=== PATIENT | female | born 1955 | race Hispanic/Latino ===

== ENCOUNTER → 2018-03-19 | Day surgery (SDC) | payer MEDICARE ==
[~2018-03-19] MED LIST: ALENDRONATE SOD70 MG PO; AMLODIPINE BESY10 MG PO; ASA325 PO; CALTRATE 600600 MG PO; CELEBREX100 MG PO; FENOFIBRATE160 MG PO; FENTANYL CITRATE/PF 100MCG/2 ML INJ ONE; FERROUS SULFAT325 MG PO; GABAPENTIN300 MG PO; LEVEMIR100 UNIT/1 SC; LOFIBRA160 MG PO; LOSARTAN POTASS25 MG PO; METFORMIN HCL500 MG PO; MIDAZOLAM HCL 2 MG/2 ML VIAL ONE; NRC7.5T PO; OMEPRAZOLE40 MG PO; OR PHACO EYE KIT ONE; PRAVASTATIN SOD40 MG PO; TOUJEO SC; TYLENOL PM PO; VICTOZA 2-0.6 MG/0.1 SC; WOMEN'S DAILY1 EACH PO
[2018-03-19 12:55] VITALS: BP 119/55
[2018-03-19] MEDS: PREOP PHACO EYE KIT ONE (14:29)
--- OUTSIDE RECORDS SUMMARY | 2018-03-19 14:43 | XMS REPORT | Clinical Summary ---
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 Disp. Refills Start End Date Status Date liraglutide 0.6 mg/0.1 mL Inject subcutaneously. Active (18 mg/3 mL) PnIj fenofibrate Take 160 mg by mouth Active (TRIGLIDE,LOFIBRA) 160 MG daily. tablet amLODIPine (NORVASC) 10 Take 10 mg by mouth Active MG tablet daily. omeprazole (PRILOSEC) 20 Take 20 mg by mouth Active MG capsule daily. gabapentin (NEURONTIN) Take 300 mg by mouth 3 Active 300 MG capsule (three) times daily. pravastatin (PRAVACHOL) Take 10 mg by mouth Active 10 MG tablet daily. metFORMIN (GLUCOPHAGE) Take 1,000 mg by mouth 2 Active 1000 MG tablet (two) times daily with breakfast and dinner. Active Problems Not on file Social History Tobacco Use Types Packs/Day Years Used Date Current Every Day Smoker Smokeless Tobacco: Never Used Alcohol Use Drinks/Week oz/Week Comments No Sex Assigned at Date Recorded Not on file Last Filed Vital Signs Not on file Plan of Treatment Not on file Results Not on fileafter 03/18/2017
== END | disposition home or self-care (01) ==
LOC: OR 09:30
PROVIDERS: ATTEND Ophthalmology
DX: H25.12 Age-related nuclear cataract, left eye (principal); I10 Essential (primary) hypertension; E11.9 Type 2 diabetes mellitus without complications; Z79.4 Long term (current) use of insulin; Z79.84 Long term (current) use of oral hypoglycemic drugs; E78.5 Hyperlipidemia, unspecified; E55.9 Vitamin D deficiency, unspecified; E66.9 Obesity, unspecified
CPT/HCPCS: 36415; 82948; J2250; V2787

== ENCOUNTER → 2018-04-02 | Day surgery (SDC) | payer MEDICARE ==
[~2018-04-02] MED LIST changes: +PREOP PHACO EYE KIT ONE
--- OUTSIDE RECORDS SUMMARY | 2018-04-02 08:04 | XMS REPORT | Clinical Summary ---
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 Active fenofibrate Take 160 mg 0 (TRIGLIDE,LOFIBRA) 160 MG by mouth tablet daily. Active amLODIPine (NORVASC) 10 Take 10 mg by 0 MG tablet mouth daily. Active omeprazole (PRILOSEC) 20 Take 20 mg by 0 MG capsule mouth daily. Active gabapentin (NEURONTIN) Take 300 mg 0 300 MG capsule by mouth 3 (three) times daily. Active pravastatin (PRAVACHOL) Take 10 mg by 0 10 MG tablet mouth daily. Active metFORMIN (GLUCOPHAGE) Take 1,000 mg 0 1000 MG tablet by mouth 2 (two) times daily with breakfast and dinner. Active Problems Not on file Social History Date Tobacco Use Types Packs/Day Years Used Current Every Day Smoker Smokeless Tobacco: Never Used Alcohol Use Drinks/Week oz/Week Comments No Sex Assigned at Date Recorded Not on file Industry Job Start Date Occupation Not on file Not on file Not on file Travel End Travel History Travel Start No recent travel history available. Last Filed Vital Signs Not on file Plan of Treatment Not on file Results Not on fileafter 04/01/2017 Insurance Payer Benefit Subscriber ID Type Phone Address Plan / Group [facility] xxxxxxxxxxxx [phone] [facility]
[2018-04-02 11:30] VITALS: BP 141/80
== END | disposition home or self-care (01) ==
LOC: OR 08:01
PROVIDERS: ATTEND Ophthalmology
DX: H25.11 Age-related nuclear cataract, right eye (principal); I10 Essential (primary) hypertension; E11.9 Type 2 diabetes mellitus without complications; E78.5 Hyperlipidemia, unspecified; E55.9 Vitamin D deficiency, unspecified; Z79.4 Long term (current) use of insulin
CPT/HCPCS: 36415; 66984; 82948; J2250; V2787

== ENCOUNTER → 2021-05-17 | Outpatient (CLI) | payer MEDICARE ==
[~2021-05-17] MED LIST changes: -FENTANYL CITRATE/PF 100MCG/2 ML INJ ONE; -MIDAZOLAM HCL 2 MG/2 ML VIAL ONE; -OR PHACO EYE KIT ONE; -PREOP PHACO EYE KIT ONE
== END ==
LOC: MAMMO 12:59
PROVIDERS: ATTEND Internal Medicine Hematology & Oncology
DX: Z12.31 Encounter for screening mammogram for malignant neoplasm of breast (principal); D50.9 Iron deficiency anemia, unspecified; E13.9 Other specified diabetes mellitus without complications; T50.905A Adverse effect of unspecified drugs, medicaments and biological substances, initial encounter; M15.4 Erosive (osteo)arthritis
CPT/HCPCS: 77067

== ENCOUNTER → 2022-06-20 | Outpatient (CLI) | payer MEDICARE | LOC: MAMMO 10:46 | PROVIDERS: ATTEND Internal Medicine Hematology & Oncology | DX: Z12.31 Encounter for screening mammogram for malignant neoplasm of breast (principal) | CPT/HCPCS: 77067 ==

== ENCOUNTER 2022-10-31 08:41 | Observation (INO) | payer MEDICARE ==
[2022-10-31] VITALS (7 sets, daily range): BP systolic 106–125; BP diastolic 61–69; PULSE 64–69; RESP 14–16; TEMP 97.6–98.1; O2SAT 96–97
[~2022-10-31 08:41] MED LIST changes: +ACETAMINOPHEN 1000 MG/100 ML 100 ML IV ONE; +GLUCOTROL XL10 MG PO; +INSULIN GL100 UNIT/3 SC; +METOPROLOL SUCC25 MG PO; +ROPIVACAINE 246.25 MG, EPINEPHRINE HCL 1:1000 1ML 0.5 MG, CLONIDINE HCL 0.08 MG, KETORO... INJ ONE; +SODIUM CHLORIDE 0.9% 500ML 500 ML ONE; +TRANEXAMIC ACID 20 ML ONE; +TRULICITY0.75 MG/0. INJ; +Vancomycin IV 1,000 MG ONE
[2022-10-31] MEDS ORDERED: DEXAMETHASONE SOD PHOS 10 MG/1 ML VIAL ONE ×2 (08:53→14:04)
[2022-10-31] MEDS ORDERED: CELECOXIB 200 MG CAP ONE (08:53)
[2022-10-31] MEDS ORDERED: CEFAZOLIN SODIUM 2 GM ONE (08:54)
[2022-10-31] MEDS ORDERED: GABAPENTIN 300 MG CAP ONE (08:54)
[2022-10-31] MEDS ORDERED: LACTATED RINGER'S 1,000 ML ONE (08:54)
[2022-10-31] MEDS ORDERED: TOUJEO INJ (09:14)
[2022-10-31] MEDS ORDERED: DEXAMETHASONE SOD PHOS INJ 4 MG/ML SDV ONE (09:22)
[2022-10-31] MEDS ORDERED: MIDAZOLAM HCL 2 MG/2 ML VIAL ONE (09:23)
[2022-10-31] MEDS ORDERED: FENTANYL CITRATE/PF 100MCG/2 ML INJ ONE ×2 (09:23→12:46)
[2022-10-31] MEDS ORDERED: ONDANSETRON HCL INJ 2MG/ML 2ML 2 MG/ML VIAL IV PRN (11:00)
[2022-10-31] MEDS ORDERED: ACETAMINOPHEN 650 MG SUPP PR PRN (11:00)
[2022-10-31] MEDS ORDERED: DOCUSATE SODIUM 100 MG CAP PO PRN (11:00)
[2022-10-31] MEDS ORDERED: HYDROCODONE/APAP 7.5MG-325MG 1 EA TAB PO PRN (11:00)
[2022-10-31] MEDS ORDERED: HYDROCODONE/APAP 5MG-325MG TAB PO PRN (11:00)
[2022-10-31] MEDS ORDERED: DIPHENHYDRAMINE HCL INJ 50 MG/ML VIAL IV PRN (11:00)
[2022-10-31] MEDS ORDERED: SODIUM CHLORIDE 0.9% 1000ML 1,000 ML IV SCH (13:00)
[2022-10-31] MEDS ORDERED: POVIDONE IODINE 0.05% 0.05 % ML PO ONE (13:45)
[2022-10-31] MEDS ORDERED: SEVOFLURANE INHAL SOLN 250 ML PEN BTL ONE (13:45)
[2022-10-31] MEDS ORDERED: KETOROLAC TROMETHAMINE 30 MG/ML VIAL ONE (13:45)
[2022-10-31] MEDS ORDERED: PROPOFOL IV EMULSION 10 MG/ML 20 ML VIAL ONE (13:45)
[2022-10-31] MEDS ORDERED: LIDOCAINE HCL 2% LOCAL INJ 5 ML SDV VIAL INJ ONE (13:45)
[2022-10-31] MEDS ORDERED: ONDANSETRON HCL INJ 2MG/ML 2ML 2 MG/ML VIAL ONE (13:45)
[2022-10-31] MEDS ORDERED: BUPIVACAINE HCL 0.5% INJ 30 ML VIAL INJ ONE (14:04)
[2022-10-31] MEDS ORDERED: CELECOXIB 200 MG CAP PO SCH (17:00)
[2022-10-31] MEDS ORDERED: ASPIRIN 325 MG TAB PO SCH (17:00)
[2022-11-01] MEDS ORDERED: ACETAMINOPHEN 1000 MG/100 ML IV PRN (11:00)
== END 2022-10-31 16:22 | disposition home or self-care (01) ==
LOC: OR 08:41 → PACU V 12:02 → MED/SURG 12:28
PROVIDERS: ADMIT Specialist; ATTEND Specialist
DX: M17.12 Unilateral primary osteoarthritis, left knee (principal); E11.9 Type 2 diabetes mellitus without complications; I10 Essential (primary) hypertension; E78.5 Hyperlipidemia, unspecified; G62.9 Polyneuropathy, unspecified; F32.A Depression, unspecified; F17.210 Nicotine dependence, cigarettes, uncomplicated; Z01.818 Encounter for other preprocedural examination; Z79.84 Long term (current) use of oral hypoglycemic drugs; Z79.85 Long-term (current) use of injectable non-insulin antidiabetic drugs; Z79.4 Long term (current) use of insulin; Z79.899 Other long term (current) drug therapy; Z68.32 Body mass index [BMI] 32.0-32.9, adult; Z96.651 Presence of right artificial knee joint
CPT/HCPCS: 27447; 36415; 71046; 73560; 82948; 86850; 86900; 86920; 94799; 97110; 97116 ×2; 97161; 97530 ×2; C1713; C1776 ×3; G0378; J0131; J0171; J0690; J1100 ×2; J1885; J2001; J2250; J2405; J2704; J2795; J3010; J3370; J7040; J7121; J7030

== ENCOUNTER 2023-09-16 01:19 | Emergency (ER) | payer MEDICARE ==
[~2023-09-16] VITALS: Ht 165.1 cm; Wt 89.4 kg
[~2023-09-16 01:19] MED LIST changes: -ACETAMINOPHEN 1000 MG/100 ML 100 ML IV ONE; -ROPIVACAINE 246.25 MG, EPINEPHRINE HCL 1:1000 1ML 0.5 MG, CLONIDINE HCL 0.08 MG, KETORO... INJ ONE; -SODIUM CHLORIDE 0.9% 500ML 500 ML ONE; +TOUJEO INJ; -TRANEXAMIC ACID 20 ML ONE; -Vancomycin IV 1,000 MG ONE
[2023-09-16 01:26] VITALS: O2SAT 100
[2023-09-16] MEDS: KETOROLAC TROMETHAMINE 30 MG/ML VIAL IM ONE (01:40)
[2023-09-16] MEDS: Morphine 4mg INJECTION 4 MG/ML INJ IM STA (01:40)
[2023-09-16] MEDS ORDERED: ACETAMINOPHEN-1 EAC4 PO (02:05)
== END 2023-09-16 02:10 | disposition home or self-care (01) ==
LOC: ER 01:22
DX: M48.56XD Collapsed vertebra, not elsewhere classified, lumbar region, subsequent encounter for fracture with routine healing (principal); I12.0 Hypertensive chronic kidney disease with stage 5 chronic kidney disease or end stage renal disease; E11.22 Type 2 diabetes mellitus with diabetic chronic kidney disease; N18.6 End stage renal disease; F17.210 Nicotine dependence, cigarettes, uncomplicated
CPT/HCPCS: 99282; J1885; J2270

== ENCOUNTER → 2024-05-14 | Outpatient (REF) | payer MEDICARE ==
[~2024-05-14] MED LIST changes: +ACETAMINOPHEN-1 EAC4 PO
== END ==
LOC: MAMMO 07:32
PROVIDERS: ATTEND Family Medicine
DX: Z12.31 Encounter for screening mammogram for malignant neoplasm of breast (principal)
CPT/HCPCS: 77067